=== PATIENT | female | born 1985 | race Two or more races ===

== ENCOUNTER 2025-08-08 15:19 | Emergency (ER) | payer MEDICAID, SELFPAY ==
[2025-08-08 15:36] VITALS: BP 149/90; PULSE 98; RESP 18; TEMP 37.2; O2SAT 98
--- NOTE | 2025-08-08 15:47 | EDNOTE_ITS ---
ED Dental RME/HPI General Chief complaint: Dental/Oral/Throat Stated complaint: SWOLLEN R) FACE Time Seen by Provider: 08/08/25 15:22 Arrival date/time: 08/08/25 15:19 40-year-old female with medical history significant HIV presents to the emergency department for plaints of right-sided facial swelling and facial pain reports that she has a broken tooth causing infection and pain patient ports that she went to the doctor yesterday they gave her a course of antibiotics she has not picked them up yet patient also reports she was also given an injection of Rocephin yesterday Limitations: no limitations Related Data Home Medications ?Medication ?Instructions ?Recorded ?Confirmed bictegravir 50 mg-emtricitabine 1 tab PO 1XD 02/24/24 02/26/24 200 mg-tenofovir alafenam 25 mg tablet (Biktarvy) labetalol 200 mg tablet 200 mg PO 2XD 02/24/2402/25 sertraline 100 mg tablet 150 mg PO QDAY 02/26/2401/29 Previous Rx's ?Medication ?Instructions ?Recorded clindamycin HCl 150 mg capsule 450 mg (3 x 150 mg) PO TID 7 days 08/08/25 #63 caps ibuprofen 800 mg tablet 800 mg PO TID PRN pain #30 t abs 08/08/25 tramadol 50 mg tablet 50 mg PO BID PRN pain #10 ta bs 08/08/25 Allergies Allergy/AdvReac Type Severity Reaction Status Date / Time No Known Allergies Allergy Verified 08/08/25 15:22 Review of Systems Review of Systems Systems Reviewed: All systems reviewed, normal except as documented Constitutional Constitutional: Reports system reviewed and no additional complaints, except as documented, Denies fever(s) and Denies headache(s) Eyes Eyes: Reports system reviewed and no additional complaints, except as documented and Denies blurry vision ENT Ears, Nose, Mouth, and Throat: Reports system reviewed and no additional complaints, except as documented, Denies headache(s), Denies nasal congestion, Denies nasal discharge and Reports other (Right-sided facial swelling, dental pain) Cardiovascular Cardiovascular: Reports system reviewed and no additional complaints, except as documented, Denies chest pain and Denies dyspnea Respiratory Respiratory: Reports system reviewed and no additional complaints, except as documented, Denies chest congestion, Denies cough and Denies dyspnea Gastrointestinal Gastrointestinal: Reports system reviewed and no additional complaints, except as documented and Denies abdominal pain Integumentary/Breasts Skin/Breast: Reports system reviewed and no additional complaints, except as documented and Denies rash Neurologic Neurologic: Reports system reviewed and no additional complaints, except as documented, Reports as per HPI and Denies headache(s) Past Medical History Past Medical History NEUROLOGIC: Negative Neurological Disorders or Seizures CARDIAC: Positive Cardiac Disorders and Hypertension; Negative Congestive Heart Failure RESPIRATORY: Positive Bronchitis; Negative Chronic Obstructive Pulmonary Disease (COPD) GASTROINTESTINAL: Negative Gastrointestinal Disorders GENITOURINARY: Positive Genitourinary Disorders (UTI); Negative Renal Disease REPRODUCTIVE: Positive Previous Pregnancies MUSCULOSKELETAL: Negative Musculoskeletal Disorders ENDOCRINE: Negative Endocrine Disorders, Diabetes Mellitus Type 1 or Diabetes Mellitus Type 2 HEMATOLOGIC: Negative Blood Disorders PSYCHO/SOCIAL: Positive Depression and Anxiety OTHER HISTORY: Positive Autoimmune Disease (AUNT:LUPUS) and Human Immunodeficiency Virus (HIV); Negative Falls, Blood Transfusions, Blood Transfusion Reaction, Anesthesia Reactions or Cancer Family History FAMILY HISTORY: Negative Family Psychiatric Problems, Family Respiratory Disorders, Family Cardiac Disorders, Family Gastrointestinal Problems, Family Cancer, Family Surgery or Family Anesthesia Reaction Surgical History SURGICAL: Positive Tonsillectomy Social History SMOKING STATUS: Never smoker ED Exam General Limitations: Present no limitations General appearance: Present alert and in no apparent distress Head Head exam: Present atraumatic Eye Eye exam: Present normal appearance, PERRL and EOMI; Absent conjunctival injection ENT ENT exam: Present mucous membranes moist Expanded ENT Exam Mouth exam: Absent drooling or trismus Teeth exam: Present dental caries, fractured tooth #, dental tenderness # and gi ngival swelling Neck Neck exam: Present normal inspection, full ROM and trachea midline Chest Chest inspection: Present normal inspection and symmetric chest wall rise Respiratory Respiratory exam: Present normal lung sounds bilaterally; Absent respiratory distress Cardiovascular Cardiovascular exam: Present regular rate, normal rhythm and normal heart sounds Abdominal Exam Abdominal exam: Present soft and normal bowel sounds; Absent distention, tenderness, guarding, rebound or rigidity Extremities Exam Extremities exam: Present normal inspection and full ROM; Absent tenderness Back Exam Back exam: Present normal inspection and full ROM Neurological Exam Neurological exam: Present alert, oriented X3, CN II-XII intact, normal gait and reflexes normal; Absent motor sensory deficit Psychiatric Psychiatric exam: Present normal affect and normal mood Skin Skin exam: Present warm, dry, intact and normal color Course Quality Measures none Orders Category Date Time Status Lidocaine 1% 20 ml [Xylocaine 1% 20 ML] Med 08/08/25 15:43 Discontinued 2.1 ml INFL X1 ONE cefTRIAXone [Rocephin] Med 08/08/25 15:43 Discontinued 1,000 mg IM X1 ONE Vital Signs Vital signs: Vital Signs Temperature 99 F 08/08/25 15:36 Pulse Rate 98 08/08/25 15:36 Respiratory Rate 18 08/08/25 15:36 Blood Pressure 149/90 H 08/08/25 15:36 Pulse Oximetry (%) 98 08/08/25 15:36 Oxygen Delivery Method Room Air 08/08/25 15:36 O2 saturation 98% room air with normal limits Dental / Oral MDM Narrative MDM Narrative:: 40-year-old female with medical history significant HIV presents to the emergency department for plaints of right-sided facial swelling and facial pain reports that she has a broken tooth causing infection and pain patient ports that she went to the doctor yesterday they gave her a course of antibiotics she has not picked them up yet patient also reports she was also given an injection of Rocephin yesterday Patient given injection of Rocephin antibiotics were changed to clindamycin Explained to patient like to return tomorrow for reevaluation for worsening symptoms or concerns return immediately. Patient data External records reviewed:: [facility] previous records Clinical information provided by:: patient Social determinants that could affect healthcare access:: none Patient has the following chronic illnesses:: None How is presenting disease/condition affected by chronic disease/condition?: no chronic disease Evaluation data The following diagnostics were reviewed and interpreted by me:: other (specify) Lab and/or radiology exams considered but not ordered:: Considered not indicated Interpretation Summary: N/A Medications / Prescriptions Medications or Prescriptions considered but not ordered:: Given Medication administrations:: Medication Administration History Discontinued Medications Ceftriaxone Sodium (Ceftriaxone Sod Inj 1,000 Mg Vial) 1,000 mg IM X1 ONE Stop: 08/08/25 15:44 Last Admin: 08/08/25 15:56 Dose: 1,000 mg Documented By: OA Lidocaine HCl (Lidocaine Hcl 1% 20 Ml Vial) 2.1 ml INFL X1 ONE Stop: 08/08/25 15:44 Last Admin: 08/08/25 15:56 Dose: 2.1 ml Documented By: CHAVO Given Consultations Consultation(s) initiated? (list below): No Diagnosis Dental Differential Diagnosis: gingival abscess, dental caries, toothache and dental abscess Most likely diagnosis given after review of the tests above:: Dental abscess Admission Indicated Admission indicated?: not indicated Admission Request Was there a request for admission?: No Disposition Plan Disposition Plan: Discharge Discharge Attestation Discharge Attestation: The patient and all family members were given an opportunity to ask questions and understood the discharge instructions. Discharge instructions specifically effects, indications for sooner follow up or return to the emergency department, and the expected course of current diagnosis. Patient condition: Stable Discharge Plan Plan Patient Disposition: HOME (Self Care) Discharge Disposition comment: Stable Prescriptions/Referrals Prescriptions/Med Rec: New ibuprofen 800 mg tablet 800 mg PO TID PRN (Reason: pain) Qty: 30 0RF clindamycin HCl 150 mg capsule 450 mg PO TID 7 Days Qty: 63 0RF tramadol 50 mg tablet 50 mg PO BID PRN (Reason: pain) Qty: 10 0RF No Action labetalol 200 mg tablet 200 mg PO 2XD Patient Comments: TAKE 1 TABLET BY MOUTH TWICE A DAY FOR 30 DAYS Biktarvy 50-200-25 mg tablet 1 tab PO 1XD Patient Comments: TAKE 1 TABLET BY MOUTH EVERY DAY FOR 30 DAYS sertraline 100 mg tablet 150 mg PO QDAY Patient Comments: TAKE 2 TABLETS BY MOUTH EVERY DAY FOR 30 DAYS Problem List Clinical Impression: Dental abscess Patient/Caregiver Discharge Instructions Education Materials: ED Dental Abscess Additional Instructions: Please return tomorrow Print Language: Venezuelan Stand Alone Forms: Amanda Award Info., Work/School Release, Patient Portal Info Letter PA/AYDEN Supervising Physician PA/APPLICATIONS PROJECT MANAGER Supervising Physician: Dr. hanson
[2025-08-08] MEDS: cefTRIAXone SOD INJ 1,000 MG VIAL 1000 MG IM (15:56)
[2025-08-08] MEDS: LIDOCAINE HCL 1% 20 ML VIAL 2.1 ML INFL (15:56)
== END 2025-08-08 15:58 | disposition home or self-care (01) ==
LOC: SERX 16:02
PROVIDERS: Emergency Provider Emergency Medicine
DX: K04.7 Periapical abscess without sinus (principal)
CPT/HCPCS: 96372; 99283; J0696; J3490

== ENCOUNTER 2025-10-19 15:27 | Emergency (ER) | payer MEDICAID, SELFPAY ==
[2025-10-19 15:28] VITALS: BMI 57.5
[2025-10-19 15:58] VITALS: BP 148/85; PULSE 85; RESP 18; TEMP 36.8; O2SAT 98
--- NOTE | 2025-10-19 16:01 | PD.EDABDPN ---
ED Abdominal Pain RME/HPI General Chief Complaint: Abdominal Pain Stated complaint: UPPER ABD PAIN Time seen by provider: 10/19/25 15:35 Arrival date/time: 10/19/25 15:27 40-year-old female with a history of a cholecystectomy and an appendectomy presents to the emergency room with a chief complaint of 7 out of 10 epigastric pain x 1 day Source: patient Mode of arrival: ambulatory Limitations: no limitations Related Data Home Medications ?Medication ?Instructions ?Recorded ?Confirmed bictegravir 50 mg-emtricitabine 1 tab PO 1XD 02/24/24 02/26/24 200 mg-tenofovir alafenam 25 mg tablet (Biktarvy) labetalol 200 mg tablet 200 mg PO 2XD 02/24/24 02/26/24 sertraline 100 mg tablet 150 mg PO QDAY 02/26/24 02/26/24 Previous Rx's ?Medication ?Instructions ?Recorded ibuprofen 800 mg tablet 800 mg PO TID PRN pain #30 tabs 08/08/25 tramadol 50 mg tablet 50 mg PO BID PRN pain #10 tabs 08/08/25 Allergies Allergy/AdvReac Type Severity Reaction Status Date / Time No Known Allergies Allergy Verified 10/19/25 15:30 Review of Systems Review of Systems Systems Reviewed: All systems reviewed, normal except as documented Constitutional Constitutional: Reports system reviewed and no additional complaints, except as documented, Denies fatigue, Denies fever(s), Denies headache(s) and Denies weakness Eyes Eyes: Reports system reviewed and no additional complaints, except as documented, Denies blurry vision and Denies change in vision ENT Ears, Nose, Mouth, and Throat: Reports system reviewed and no additional complaints, except as documented, Denies otalgia, Denies headache(s), Denies nasal congestion, Denies throat swelling and Denies vertigo Cardiovascular Cardiovascular: Reports system reviewed and no additional complaints, except as documented, Denies chest pain, Denies dyspnea and Denies dyspnea on exertion Respiratory Respiratory: Reports system reviewed and no additional complaints, except as documented, Denies chest congestion, Denies cough, Denies dyspnea, Denies dyspnea on exertion and Denies wheezing Gastrointestinal Gastrointestinal: Reports system reviewed and no additional complaints, except as documented, Reports abdominal pain, Reports cramping, Reports dyspepsia, Denies nausea and Denies vomiting Genitourinary Genitourinary: Reports system reviewed and no additional complaints, except as documented Musculoskeletal Musculoskeletal: Reports system reviewed and no additional complaints, except as documented and Denies back pain Integumentary/Breasts Skin/Breast: Reports system reviewed and no additional complaints, except as documented and Denies wounds Neurologic Neurologic: Reports system reviewed and no additional complaints, except as documented, Denies confusion, Denies headache(s), Denies lack of coordination, Denies vertigo and Denies weakness Psychiatric Psychiatric: Reports system reviewed and no additional complaints, except as documented, Denies anxiety, Denies confusion, Denies depression, Denies paranoia, Denies suicidal ideation and Denies tactile hallucinations Endocrine Endocrine: Reports system reviewed and no additional complaints, except as documented and Denies fatigue Hematologic/Lymphatic Hematologic/Lymphatic: Reports system reviewed and no additional complaints, except as documented and Denies lymphadenopathy Allergic/Immunologic Allergic/Immunologic: Reports system reviewed and no additional complaints, except as documented, Denies throat swelling, Denies urticaria and Denies wheezing ED Exam General Limitations: Present no limitations General appearance: Present alert and in no apparent distress Head Head exam: Present atraumatic Eye Eye exam: Present normal appearance, PERRL and EOMI ENT ENT exam: Present normal exam, normal oropharynx and mucous membranes moist Neck Neck exam: Present normal inspection, full ROM and trachea midline Chest Chest inspection: Present normal inspection and symmetric chest wall rise Respiratory Respiratory exam: Present normal lung sounds bilaterally Cardiovascular Cardiovascular exam: Present regular rate, normal rhythm and normal heart sounds Abdominal Exam Abdominal exam: Present soft and normal bowel sounds Extremities Exam Extremities exam: Present normal inspection and full ROM Back Exam Back exam: Present normal inspection and full ROM Neurological Exam Neurological exam: Present alert, oriented X3 and CN II-XII intact Psychiatric Psychiatric exam: Present normal affect and normal mood Skin Skin exam: Present warm, dry, intact and normal color Course Quality Measures none Orders Category Date Time Status CBC Stat Lab 10/19/25 16:00 Ordered CMP [Comprehensive Metabolic Panel] Stat Lab 10/19/25 16:00 Ordered HCG Qualitative,Urine Stat Lab 10/19/25 16:00 Ordered Lipase Stat Lab 10/19/25 16:00 Ordered UA [Urinalysis] Stat Lab 10/19/25 16:00 Ordered Urine Culture Stat Lab 10/19/25 16:00 Ordered HYDROcodone*/APAP 5/325 [Struthers 5/325] Med 10/19/25 16:00 Once 1 tab PO X1 ONE Ondansetron Odt [Zofran Odt] Med 10/19/25 16:00 Once 4 mg PO X1 ONE mg Hyd/Al Hyd/Reji Susp [Maalox Susp] Med 10/19/25 16:00 Once 30 ml PO X1 ONE Vital Signs Vital signs: Vital Signs Temperature 98.2 F 10/19/25 15:58 Pulse Rate 85 10/19/25 15:58 Respiratory Rate 18 10/19/25 15:58 Blood Pressure 148/85 H 10/19/25 15:58 Pulse Oximetry (%) 98 10/19/25 15:58 Oxygen Delivery Method Room Air 10/19/25 15:58 Abdominal Pain MDM MDM Narrative MDM Narrative:: 40-year-old female with a history of a cholecystectomy and an appendectomy presents to the emergency room with a chief complaint of 7 out of 10 epigastric pain x 1 day Patient data External records reviewed:: [facility] previous records Clinical information provided by:: patient Social determinants that could affect healthcare access:: none Patient has the following chronic illnesses:: No chronic illness How is presenting disease/condition affected by chronic disease/condition?: no chronic disease Evaluation data The following diagnostics were reviewed and interpreted by me:: lab results and radiology exam(s) Lab and/or radiology exams considered but not ordered:: Labs and radiology exams considered and ordered Interpretation Summary: N/A Medications / Prescriptions Medications or Prescriptions considered but not ordered:: Medication given Medication administrations:: Medication given Consultations Consultation(s) initiated? (list below): No Diagnosis Differential diagnosis abdominal pain: abdominal pain and gastroenteritis Admission Indicated Admission indicated?: not indicated Admission Request Was there a request for admission?: No Disposition Plan Disposition Plan: Discharge Discharge Attestation Discharge Attestation: The patient and all family members were given an opportunity to ask questions and understood the discharge instructions. Discharge instructions specifically effects, indications for sooner follow up or return to the emergency department, and the expected course of current diagnosis. Patient condition: Stable Discharge Plan Prescriptions/Referrals Prescriptions/Med Rec: No Action labetalol 200 mg tablet 200 mg PO 2XD Patient Comments: TAKE 1 TABLET BY MOUTH TWICE A DAY FOR 30 DAYS Biktarvy 50-200-25 mg tablet 1 tab PO 1XD Patient Comments: TAKE 1 TABLET BY MOUTH EVERY DAY FOR 30 DAYS sertraline 100 mg tablet 150 mg PO QDAY Patient Comments: TAKE 2 TABLETS BY MOUTH EVERY DAY FOR 30 DAYS ibuprofen 800 mg tablet 800 mg PO TID PRN (Reason: pain) Qty: 30 0RF tramadol 50 mg tablet 50 mg PO BID PRN (Reason: pain) Qty: 10 0RF Patient/Caregiver Discharge Instructions Print Language: Sami
--- NOTE | 2025-10-19 16:51 | PD.EDRME ---
Rapid Medical Screening [facility] Arrival date/time: 10/19/25 15:27 40-year-old female with a history of a cholecystectomy and an appendectomy presents to the emergency room with a chief complaint of 7 out of 10 epigastric pain x 1 day I have greeted and performed a focused initial assessment of this patient. A comprehensive ED assessment and evaluation of the patient, analysis of all test results, and completion of the medical decision making process will be conducted by additional ED providers. Chief Complaint: Abdominal Pain Time Seen by Provider: 10/19/25 15:35 Vital signs: Vital Signs Temperature 98.2 F 10/19/25 15:58 Pulse Rate 85 10/19/25 15:58 Respiratory Rate 18 10/19/25 15:58 Blood Pressure 148/85 H 10/19/25 15:58 Pulse Oximetry (%) 98 10/19/25 15:58 Oxygen Delivery Method Room Air 10/19/25 15:58 Vital signs reviewed by provider: Yes Exam: 7 out of 10 epigastric pain with palpation No right lower quadrant no right upper quadrant abdominal tenderness Clear bilateral lung sounds Clinical Impression: Gastritis/gastroenteritis/UTI
--- NOTE | 2025-10-19 16:52 | PC.NURSE ---
pt called inside and outside the ED lobby; no response at this time
--- NOTE | 2025-10-19 17:19 | PC.NURSE ---
NA X2 [id number]
--- NOTE | 2025-10-19 17:47 | PC.NURSE ---
NA X3 [id number]
== END 2025-10-19 17:48 | disposition left against medical advice (07) ==
PROVIDERS: Emergency Provider Family Medicine; PCP Family Medicine
DX: R10.13 Epigastric pain (principal); Z53.29 Procedure and treatment not carried out because of patient's decision for other reasons
CPT/HCPCS: 80053; 81001; 81025; 83690; 85025; 87086; 99281